=== PATIENT | female | born 1965 ===

== ENCOUNTER 2018-06-09 06:05 | Day surgery (SDC) | payer BC ==
[2018-05-20 11:02] VITALS: BMI 23.6
[2018-06-09] MEDS ORDERED: Iohexol 350 MG/100 ML VIAL ONE (06:49)
[2018-06-09] MEDS ORDERED: Phenylephrine 10 mg/ml Inj ONE (06:49)
[2018-06-09] MEDS ORDERED: Iohexol 350mgl/ml 50 ML ONE (06:50)
[2018-06-09] MEDS ORDERED: Lidocaine 2% Inj (20ml) ONE (06:50)
[2018-06-09 07:05] LABS: BASO # 0.01 K/mm3 (0.0-2.0); BASO % 0.2 % (0.0-3.0); EOS # 0.1 (0.0-0.7); EOS % 2.2 % (1.5-5.0); GRAN # 2.36 (1.4-6.5); HEMOGLOBIN 12.2 g/dL (12.0-16.0); LYMPH # 1.8 (1.2-3.4); LYMPH % 39.2 % (22.0-35.0); MEAN CELL VOLUME 93.3 fl (80.0-105.0); MEAN CORPUSCULAR HEMOGLOBIN 31.4 pg (25.0-35.0); MEAN CORPUSCULAR HGB CONC 33.6 g/dl (31.0-37.0); MEAN PLATELET VOLUME 12.4 fl (7.0-11.0); MONO # 0.2 (0.1-0.6); MONO % 5.4 % (1.0-6.0); RBC 3.89 10^6/uL (3.5-6.1); RED CELL DISTRIBUTION WIDTH 13.7 % (11.5-14.5); WHITE BLOOD COUNT 4.5 10^3/uL (4.5-11.0)
[2018-06-09 07:14] LABS: INR 0.93; PROTHROMBIN TIME 10.7 SECONDS (9.4-12.5)
[2018-06-09 07:21] LABS: BLOOD UREA NITROGEN 25 mg/dL (7-21); CALCIUM 9.2 mg/dL (8.4-10.5); GFR NON-AFRICAN AMERICAN > 60
[2018-06-09] MEDS ORDERED: Midazolam 2 MG/2 ML VIAL ONE (08:05)
[2018-06-09] MEDS ORDERED: Naloxone 0.4 mg/ml Inj (Adult) ONE (08:17)
[2018-06-09] MEDS ORDERED: Flumazenil 0.1 mg/ml Inj (5ml) IVP ONE (08:19)
[2018-06-09] MEDS ORDERED: Sodium Chloride 0.9% 1,000 ML IV SCH (08:45)
[2018-06-09 09:22] VITALS: TEMP 97.7
--- NOTE | 2018-06-09 10:05 | CARDCATH ---
PROCEDURE DATE: 06/09/2018 HISTORY: The patient is a 52-year-old woman who suffers from hypercholesterolemia who presents with recurrence of chest pain. She was sent for a stress test which showed apical defects. Because of this, cardiac catheterization was recommended. PROCEDURE: Left heart catheterization with coronary arteriography, left ventriculogram, supra-aortic valvular injection. The right femoral artery was cannulated with 6-[place] sheath. There were no complications. I performed moderate sedation which included the presence of an independent trained observer that assisted in monitoring the patient's level of consciousness and physiologic status. After administration of Versed and fentanyl, my intra service time was 15 minutes. The findings on catheterization revealed a left ventricle that contracted normally. Estimated ejection fraction is 55%-60%. Her coronary anatomy revealed a right dominant circulation. The RCA was free of significant disease. The left main artery was unremarkable. The LAD and diagonal vessels revealed intimal irregularities without critical lesions. Circumflex artery revealed intimal irregularities without critical lesions. Supra-aortic valvular injection revealed no aortic insufficiency. The manual compression was used to close the femoral artery site. The patient tolerated the procedure well. In summary, the procedure revealed mild intimal irregularities in the coronary tree, but no critical lesions. LV function is normal. Given these findings, the patient's chest pain is not of cardiac origin. The patient needs to continue a cardiac risk reduction program with lowering of her cholesterol and a baby aspirin daily. An investigation for noncardiac source of chest pain would be appropriate. Landon Llamas MD
[2018-06-09 11:58] VITALS: RESP 16
[2018-06-09 14:16] VITALS: BP 83/56; PULSE 48; O2SAT 96
--- NOTE | 2018-06-09 16:23 | CARD ---
APPROVED REPORT Date of service: 06/09/2018 EKG Measurement Heart [id number] <Conclusion> Marked sinus bradycardia RVCD T wave abnormality, consider anterior ischemia
== END 2018-06-09 16:05 | disposition home or self-care (01) ==
LOC: CATH 06:05
PROVIDERS: ATTEND Internal Medicine Cardiovascular Disease
DX: R07.89 Other chest pain (principal); E78.00 Pure hypercholesterolemia, unspecified
CPT/HCPCS: 36415; 80048; 85025; 85610; 85730; 86850; 86900; 93005; 93458; 99152; 99153; C1769; C2629; J1644; J2250; J2310; J3010; J7030; Q9967